=== PATIENT | male | born 1945 | race Caucasian/White ===

== ENCOUNTER → 2017-10-26 | Outpatient (CLI) | payer BC ==
[~2017-10-26] MED LIST: ABILIFY2 MG; ABILIFY2 MG PO; ABILIFY5 MG PO; ALLOPURINOL300 MG PO; AMBIEN 10MG10 MG PO; BUSPAR DIVIDOSE15 MG PO; BUSPAR10 MG PO; CALCIUM500 MG PO; CARDIZEM CD 12120 MG PO; CENTRUM SILVER1 CTB PO; CENTRUM1 TAB PO; CLOPIDOGREL; CRANBERRY1 CAP PO; ELIQUIS 5MG PO; FERROUS SULFATE65 MG PO; FISH OIL 1000MG1 CAP PO; FISH OIL O1600 MG/5 PO; FORTAMET500 MG PO; FOSINOPRIL PO; FOSINOPRIL SODI10 MG PO; GLUCOPHAGE XR500 M1 PO; GLUCOPHAGE500 MG/TAB PO; LIPITOR20 MG PO; LOPRESSOR 225 MG/TAB PO; MONOPRIL20 MG PO; NORCO 325 MG-7.1 TAB PO; PLAQUENIL 200M200 MG PO; PLAVIX 75MG TAB75 MG PO; PROTONIX 40MG T40 MG PO; PROTONIX40 MG/Pack PO; VITAMIN B-1000 MCG/T PO; VITAMIN B-12100 MCG PO; VITAMIN C500 MG PO; ZOCOR 20MG20 MG PO; ZYLOPRIM 300MG300 MG PO
== END ==
LOC: COL.RAD 11:59
DX: N26.1 Atrophy of kidney (terminal) (principal); N28.89 Other specified disorders of kidney and ureter; Z85.51 Personal history of malignant neoplasm of bladder; Z87.440 Personal history of urinary (tract) infections

== ENCOUNTER 2018-09-13 09:34 | Outpatient (RCR) | payer MEDICARE, BC ==
[~2018-09-13] VITALS: Ht 182.9 cm; Wt 73.3 kg
[2018-09-13 11:18] VITALS: BP 118/57; PULSE 74; TEMP 97.6
== END 2018-09-17 12:30 | disposition home or self-care (01) ==
LOC: EUO 09:34
DX: C34.12 Malignant neoplasm of upper lobe, left bronchus or lung (principal); D63.0 Anemia in neoplastic disease
CPT/HCPCS: J7050

== ENCOUNTER → 2018-10-15 | Outpatient (CLI) | payer MEDICARE, BC | LOC: COL.RAD 09:12 | DX: N13.30 Unspecified hydronephrosis (principal) | CPT/HCPCS: Q9967 ==

== ENCOUNTER 2020-02-04 11:54 | Inpatient (IN) | payer MEDICARE, BC ==
[~2020-02-04] VITALS: Ht 182.9 cm; Wt 72.3 kg
[~2020-02-04 11:54] MED LIST changes: +B-12 500 MCG PO; +CRANBERRY500 M3 PO; +OMNICEF 300MG300 MG PO; +PREDNISONE 5MG5 MG PO; +PROLIA60 MG/ML SQ
[2020-02-04 13:08] LABS: ALANINE AMINOTRANSFERASE 24 U/L (4-49); ALBUMIN 3.4 gm/dL (3.5-5.0); ALKALINE PHOSPHATASE 87 U/L (50-136); ANION GAP 7 mmol/L (7-16); AST,SGOT 28 U/L (15-37); BILIRUBIN,TOTAL 0.8 mg/dL (0.0-1.0); BLOOD UREA NITROGEN 21 mg/dL (9-20); C-REACTIVE PROTEIN 8.8 mg/dL (0.0-0.9); CALCIUM 8.9 mg/dL (8.4-10.2); CARBON DIOXIDE 28 mmol/L (22-30); CHLORIDE 94 mmol/L (98-107); GLUCOSE 103 mg/dL (74-106); LIPASE 148 U/L (23-300); POTASSIUM 4.4 mmol/L (3.4-5.0); SODIUM 129 mmol/L (137-145); TOTAL PROTEIN 7.3 gm/dL (6.4-8.2)
[2020-02-04 13:09] LABS: MEAN CELL VOLUME 83 fl (80.0-100.0); MEAN CORPUSCULAR HGB CONC 33 g/dl (33.0-37.0); MEAN PLATELET VOLUME 9.9 fl (7.4-10.4); PLATELET COUNT 293 K/mm3 (130-400); RED BLOOD COUNT 2.75 M/mm3 (4.20-5.60); REDCELL DISTRIBUTION WIDTH-CV 17.3 % (11.5-14.5)
[2020-02-04 13:10] LABS: HEMATOCRIT 22.7 % (42.0-52.0); HEMOGLOBIN 7.4 g/dl (13.5-18.0); MEAN CORPUSCULAR HEMOGLOBIN 27 pg (27.0-31.0)
[2020-02-04 13:12] LABS: INR 1.4 (0.8-3.0); PROTHROMBIN TIME 16.6 SECONDS (9.7-12.8)
[2020-02-04 13:46] LABS: TROPONIN-I < 0.012 ng/mL (0.000-0.035)
[2020-02-04 13:48] LABS: ANISOCYTOSIS 1+; BAND 8 % (0-10); LYMPHOCYTE 8 % (20.0-51.0); OVALOCYTES 3+; SCHISTOCYTES 1+
[2020-02-04 13:49] LABS: NEUTROPHILS 82 % (42.0-75.2); PLATELET ESTIMATE NORMAL (NORMAL)
[2020-02-04] MEDS ORDERED: ONE DAILY MULTI1 TA1 PO (13:54)
[2020-02-04] MEDS ORDERED: OMNICEF 300MG300 MG PO (14:46)
[2020-02-04 17:10] VITALS: BP 118/63; PULSE 87; TEMP 98
--- NOTE | 2020-02-04 18:27 | NUR ---
Patient arrived from ED via strecher at approximately 1700. Patient is alert and oriented, answers questions appropriately. Patient denies pain or nausea at this time. IVF initiated per order, antibiotic initiated in ED continues. Patient denies needs at this time, call light within reach.
[2020-02-04 19:48] VITALS: BP 121/73; PULSE 108; TEMP 99
--- NOTE | 2020-02-04 21:00 | NUR ---
Pt. sitting up in bed at this time. Pt. is A&OX3, assessment complete. IV to rt. forearm patent, fluids infusing per orders. Pt. denies pain or other needs, call light within reach.
[2020-02-04 23:18] VITALS: BP 90/53; PULSE 85; TEMP 99.5
[2020-02-05 06:11] VITALS: BP 100/54; PULSE 79; TEMP 99.4
[2020-02-05 06:42] LABS: MEAN CELL VOLUME 84 fl (80.0-100.0); MEAN CORPUSCULAR HGB CONC 32 g/dl (33.0-37.0); MEAN PLATELET VOLUME 9.9 fl (7.4-10.4); PLATELET COUNT 279 K/mm3 (130-400); RED BLOOD COUNT 2.56 M/mm3 (4.20-5.60); REDCELL DISTRIBUTION WIDTH-CV 17.2 % (11.5-14.5)
[2020-02-05 06:48] LABS: HEMATOCRIT 21.6 % (42.0-52.0); MEAN CORPUSCULAR HEMOGLOBIN 27 pg (27.0-31.0)
[2020-02-05 06:49] LABS: ALBUMIN 2.7 gm/dL (3.5-5.0); BILIRUBIN,TOTAL 0.6 mg/dL (0.0-1.0); CALCIUM 7.6 mg/dL (8.4-10.2); CREATININE, serum 0.95 (0.66-1.25); POTASSIUM 3.9 mmol/L (3.4-5.0)
[2020-02-05 06:50] LABS: HEMOGLOBIN 6.9 g/dl (13.5-18.0)
[2020-02-05 07:38] LABS: BAND 4 % (0-10); LYMPHOCYTE 11 % (20.0-51.0); NEUTROPHILS 85 % (42.0-75.2)
[2020-02-05 07:39] LABS: ANISOCYTOSIS 1+; OVALOCYTES 2+; PLATELET ESTIMATE NORMAL (NORMAL); POIKILOCYTOSIS 2+
[2020-02-05 07:40] LABS: MICROCYTOSIS 1+
[2020-02-05 07:42] LABS: HYPOCHROMIA 2+
--- NOTE | 2020-02-05 08:00 | NUR ---
Patient in bed resting. Alert and oriented x 3. Assessment complete. Patient states he has not had much of an appetite the past couple of days. Ileal conduit to daniels bag, drainaing clear yellow urine. Denies pain at this time. Fluids infusing per orders to right forarm IV. Denies further needs at this time.
[2020-02-05 08:10] VITALS: BP 106/47; PULSE 85; TEMP 98.7
--- NOTE | 2020-02-05 08:30 | NUR ---
Patient lying in bed. Assessment complete and meds charted. No further needs at this time.
[2020-02-05 11:16] VITALS: BP 111/63; PULSE 79; TEMP 98.9
[2020-02-05 11:24] LABS: IRON,SERUM 16 ug/dL (35-150)
[2020-02-05 11:34] LABS: TOTAL IRON BINDING CAPACITY 206 ug/dL (261-462)
--- NOTE | 2020-02-05 13:26 | NUR ---
GRIFFIN met with the patient to complete initial intake. The patient lives in [place] with his Telma. The patient denies DME usage and is independent with ADLs. The patient's PCP is Dr. Mendoza and patient receives medications from [facility] with no difficulties. The patient does not have advanced directives in the EMR but reports they are completed. The patient plans to return home at discharge. There are no additional needs at this time.
[2020-02-05 15:20] LABS: HEMATOCRIT 21.6 % (42.0-52.0); HEMOGLOBIN 6.9 g/dl (13.5-18.0)
--- NOTE | 2020-02-05 15:20 | NUR ---
Notified hospitalist of critical HGB
[2020-02-05 15:35] VITALS: BP 114/50; PULSE 89; TEMP 98.9
--- NOTE | 2020-02-05 17:43 | NUR ---
Patient has done well. Has been up to recliner most of the day. x1 assist back to bed with walker. Ileal conduit to daniels bag with clear yellow urine. Fluids infusing per orders. Patient was educated on new diet. Denies pain or further needs at this time. WIll report off to night court magistrate.
[2020-02-05 20:51] VITALS: BP 107/69; PULSE 90; TEMP 99.9
--- NOTE | 2020-02-05 21:20 | NUR ---
Pt doing well. Alert and oriented with vss. Heart and lung sounds normal. Pt has ileal conduit, CD&I, clear yellow urine. Bowel sounds aud all quad. Pedal pulses present. Pt to have CT in AM, will be NPO at midnight. Denies pain or needs. Help BP med due to hypotension. Call light within reach, will continue to monitor
[2020-02-05 23:02] VITALS: BP 109/49; PULSE 78; TEMP 98.8
[2020-02-06 03:32] VITALS: BP 113/60; PULSE 90; TEMP 98.2
[2020-02-06 03:44] LABS: COLLECTION METHOD CLEAN CATCH
[2020-02-06 04:30] LABS: PH 7 (5-8); SQUAMOUS EPITHELIAL None Seen /hpf; URINE APPEARANCE Hazy; URINE BACTERIA None Seen /hpf; URINE BILIRUBIN Negative (NEGATIVE); URINE BLOOD Negative (NEGATIVE); URINE COLOR Yellow; URINE GLUCOSE Negative (NEGATIVE); URINE KETONE Negative (NEGATIVE); URINE LEUKOCYTE ESTERASE 2+ (NEGATIVE); URINE NITRATE Negative (NEGATIVE); URINE PROTEIN(semi-quant) Negative (NEGATIVE); URINE RBC 0-2 /hpf
--- NOTE | 2020-02-06 06:34 | NUR ---
Pt had uneventful night, slept throughout night. Denies pain or needs. Will have CT this AM. Call light within reach, will continue to monitor
[2020-02-06 06:54] LABS: MEAN CELL VOLUME 85 fl (80.0-100.0); MEAN CORPUSCULAR HGB CONC 32 g/dl (33.0-37.0); MEAN PLATELET VOLUME 9.9 fl (7.4-10.4); PLATELET COUNT 246 K/mm3 (130-400); RED BLOOD COUNT 2.58 M/mm3 (4.20-5.60)
[2020-02-06 06:55] LABS: HEMATOCRIT 21.9 % (42.0-52.0); MEAN CORPUSCULAR HEMOGLOBIN 27 pg (27.0-31.0)
[2020-02-06 07:05] LABS: CALCIUM 7.7 mg/dL (8.4-10.2); CREATININE, serum 0.75 (0.66-1.25)
[2020-02-06 07:32] VITALS: BP 123/60; PULSE 88; TEMP 97.7
--- NOTE | 2020-02-06 07:52 | NUR ---
Patient awake & alert, sitting up in bed. Awating Ct scan this am. Npo. He denies pain. He denies nausea. Ivf per orders to Rfa. Adequate urine output from illeoconduit. Sj phelan.
[2020-02-06 08:09] LABS: BAND 10 % (0-10); LYMPHOCYTE 5 % (20.0-51.0); NEUTROPHILS 85 % (42.0-75.2); PLATELET ESTIMATE NORMAL (NORMAL)
[2020-02-06 08:10] LABS: ANISOCYTOSIS 2+; OVALOCYTES 2+; SCHISTOCYTES 1+
--- NOTE | 2020-02-06 09:28 | NUR ---
Patient has returned from Ct scan. awaiting results. Am medications given.
[2020-02-06 12:11] VITALS: BP 94/69; PULSE 71; TEMP 98.1
--- NOTE | 2020-02-06 12:48 | NUR ---
First visit from the coremaker. No needs right now.
[2020-02-06 16:37] VITALS: BP 108/59; PULSE 76; TEMP 97.6
--- NOTE | 2020-02-06 17:59 | NUR ---
Patient sitting up in chair. rounded this afternoon & orders obtained. Plan of care was reviewed with patient & his extensivly. Iv to Int. Patient was independet with hygiene. He is tolerating low fiber diet.
--- NOTE | 2020-02-06 20:00 | NUR ---
Report received. Assumed care for machinist 2nd shift. Assessment complete. VS stable. A&Ox3. Denies pain/shortness of breath/nausea. Tolerating diet. +flatus. INT to right wrist flushes without difficulty. Ileal conduit with yellow urine with some sediment. Plan of care discussed for this shift-denies questions/concerns. Call light in reach. Will monitor.
[2020-02-06 20:29] VITALS: BP 112/61; PULSE 78; TEMP 97.4
[2020-02-07 00:41] VITALS: BP 115/59; PULSE 80; TEMP 98
[2020-02-07 04:24] VITALS: BP 112/53; PULSE 72; TEMP 97.5
[2020-02-07 06:53] LABS: CALCIUM 7.8 mg/dL (8.4-10.2); CREATININE, serum 0.67 (0.66-1.25); POTASSIUM 3.8 mmol/L (3.4-5.0)
[2020-02-07 07:13] LABS: MEAN CELL VOLUME 85 fl (80.0-100.0); MEAN CORPUSCULAR HGB CONC 32 g/dl (33.0-37.0); PLATELET COUNT 312 K/mm3 (130-400); RED BLOOD COUNT 2.94 M/mm3 (4.20-5.60); REDCELL DISTRIBUTION WIDTH-CV 17.3 % (11.5-14.5)
[2020-02-07 07:26] LABS: HEMATOCRIT 25.1 % (42.0-52.0); MEAN CORPUSCULAR HEMOGLOBIN 27 pg (27.0-31.0)
[2020-02-07 07:58] VITALS: BP 126/55; PULSE 89; TEMP 97.5
--- NOTE | 2020-02-07 08:00 | NUR ---
Patient in bed resting. Alert and oriented x 3. Assessment complete. Denies pain at this time. Denies further needs at this time.
[2020-02-07] MEDS ORDERED: FLAGYL500 MG PO (08:51)
[2020-02-07] MEDS ORDERED: CIPRO 500MG TA500 MG PO ×2 (08:53)
[2020-02-07 09:29] LABS: LYMPHOCYTE 4 % (20.0-51.0); NEUTROPHILS 93 % (42.0-75.2); PLATELET ESTIMATE NORMAL (NORMAL)
[2020-02-07 09:30] LABS: OVALOCYTES 2+
[2020-02-07 09:31] LABS: BURR CELLS 1+
[2020-02-07] MEDS ORDERED: OMNICEF 300MG300 MG PO (09:33)
[2020-02-07 09:34] LABS: SCHISTOCYTES 1+
--- NOTE | 2020-02-07 11:20 | NUR ---
Discharge education provided to patient. Educated on follow up appointments and all new medications. Educated on low fiber diet. All questions answered. INT to right forarm discontinued, catheter tip intact. No further needs at this time. Patient out by wheelchair with surgical staff.
== END 2020-02-07 11:20 | disposition home or self-care (01) | DRG 392 ==
LOC: COL.ER 11:54 → SURG 15:12
PROVIDERS: Emergency Medicine; Physician Assistant; ADMIT Student in an Organized Health Care Education/Training Program
DX: K57.20 Diverticulitis of large intestine with perforation and abscess without bleeding (principal); D59.1 Other autoimmune hemolytic anemias; E87.1 Hypo-osmolality and hyponatremia; J44.9 Chronic obstructive pulmonary disease, unspecified; E78.5 Hyperlipidemia, unspecified; M06.9 Rheumatoid arthritis, unspecified; R63.0 Anorexia; R19.00 Intra-abdominal and pelvic swelling, mass and lump, unspecified site; N28.9 Disorder of kidney and ureter, unspecified; K05.219 Aggressive periodontitis, localized, unspecified severity; I48.91 Unspecified atrial fibrillation; Z03.818 Encounter for observation for suspected exposure to other biological agents ruled out; Z79.01 Long term (current) use of anticoagulants; Z85.118 Personal history of other malignant neoplasm of bronchus and lung; Z85.51 Personal history of malignant neoplasm of bladder; Z87.891 Personal history of nicotine dependence; Z68.21 Body mass index [BMI] 21.0-21.9, adult
CPT/HCPCS: 99223-AI; 99233-AI; 99239; A4216; J0696; J2405; J7030; J7512; Q9967

== ENCOUNTER 2020-02-25 14:30 | Inpatient (IN) | payer MEDICARE, BC ==
[~2020-02-25] VITALS: Ht 182.9 cm; Wt 67.4 kg
[2020-02-25] VITALS (121 sets, daily range): BP systolic 110–132; BP diastolic 55–67; PULSE 105–122; TEMP 98.3–100.4; O2SAT 93–100
[~2020-02-25 14:30] MED LIST changes: +CIPRO 500MG TA500 MG PO; +FLAGYL500 MG PO; +ONE DAILY MULTI1 TA1 PO
--- NOTE | 2020-02-25 16:49 | NUR ---
PT ARRIVED TO FLOOR VIA WHEELCHAIR, INDEPENDENT IN ROOM, STEADY ON FEET, DENYING PAIN OR DISCOMFORT, ORIENTED TO ROOM, PERFORMED COVID AND INFECTIOUS DISEASE SCREEN, ASSESSMENT, SUICIDE ASSESSMENT AND ADMISSION B. BROUGHT IN ICE CHIPS NO OTHER NEEDS AT THIS TIME.
[2020-02-25 17:28] LABS: MEAN CELL VOLUME 86 fl (80.0-100.0); MEAN CORPUSCULAR HGB CONC 32 g/dl (33.0-37.0); MEAN PLATELET VOLUME 9.7 fl (7.4-10.4); PLATELET COUNT 347 K/mm3 (130-400); RED BLOOD COUNT 2.91 M/mm3 (4.20-5.60); REDCELL DISTRIBUTION WIDTH-CV 19.9 % (11.5-14.5)
[2020-02-25] MEDS ORDERED: VITAMIN B12 781 TAB PO (17:29)
[2020-02-25 17:31] LABS: MEAN CORPUSCULAR HEMOGLOBIN 27 pg (27.0-31.0)
[2020-02-25 17:38] LABS: CALCIUM 8.6 mg/dL (8.4-10.2); CREATININE, serum 0.91 (0.66-1.25); POTASSIUM 4.2 mmol/L (3.4-5.0)
[2020-02-25] MEDS ORDERED: PROBIOTIC ACID1 EAC3 PO (17:38)
[2020-02-25] MEDS ORDERED: VITAMINC1000TA PO (17:39)
[2020-02-25 17:44] LABS: ANISOCYTOSIS 3+; BASOPHIL 1 % (0-2); LYMPHOCYTE 5 % (20.0-51.0); MYELOCYTE 1 % (0-0); NEUTROPHILS 88 % (42.0-75.2); POIKILOCYTOSIS 3+
[2020-02-25 17:45] LABS: HELMET CELLS 1+; OVALOCYTES 3+
[2020-02-25 17:46] LABS: PLATELET ESTIMATE NORMAL (NORMAL)
[2020-02-25] MEDS ORDERED: MASON NATURAL2000 IU PO (17:48)
[2020-02-25] MEDS ORDERED: NATURAL IRON65 MG PO (17:50)
[2020-02-25] MEDS ORDERED: COLACE 100100 MG/CAP PO (17:53)
--- NOTE | 2020-02-25 20:28 | NUR ---
OR staff to come get patient at 2015. Consent signed and on chart. Belongings taken to ICU bed 5 by this nurse. Patient left on telemetry. Will report off to ICU nurse when they return my call.
--- NOTE | 2020-02-25 21:00 | NUR ---
Recieved report from Mirza Kaba RN. patient is currenlty in the PACU.
--- NOTE | 2020-02-25 21:15 | NUR ---
Recieved report and status update from Lars, PACU nurse. patient is stable and awake and alert. there were no complications with CT placement. it is covered with zeroform, gauze and tegaderm, hooked up to continuous suction.
--- NOTE | 2020-02-25 21:22 | NUR ---
Patient arrived from PACU. patient is stable, on RA satting at 98%, no pain reported.
--- NOTE | 2020-02-25 21:35 | NUR ---
called , Lars the PACU nurse answered, I told him there are some bubbles in the chamber at the level 1. said that there was a small leak and that that is okay and to call if the bubbles go past 3.
--- NOTE | 2020-02-25 21:47 | NUR ---
Called pateints , Telma, to let her know the patient arrived to the ICU and is stable doing great. Told her that the CT placement went well with no complications and she asked if he was recieving any blood. I told her at this time he is not but we are redrawing an H/H at midnight and I would call her with those reults upon her request, she said yes please do.
--- NOTE | 2020-02-25 21:54 | NUR ---
called ROCÍO Alejandra because pateint was requesting colace. I let her know that none of the pateints home medications were ordered.
[2020-02-26] VITALS (623 sets, daily range): BP systolic 111–124; BP diastolic 55–84; PULSE 94–115; TEMP 98.1–99.8; O2SAT 71–100
[2020-02-26 00:33] LABS: HEMATOCRIT 20.6 % (42.0-52.0); HEMOGLOBIN 6.9 g/dl (13.5-18.0)
--- NOTE | 2020-02-26 00:50 | NUR ---
Informed patient that his hgb dropped to 6.9 and asked if he wanted us to transfuse him. In the past he has refused blood transfusions with hgb levels below 7. The patient did refuse again this time. He said he feels great and he does not want a blood transfusion at this time.
--- NOTE | 2020-02-26 00:59 | NUR ---
Contacted the pateints , Telma, to update her on the patients new hgb level. she said she would like to know what the mornings level is.
--- NOTE | 2020-02-26 01:05 | NUR ---
Contacted Ny to let her know of critical hgb level and its drop to 6.9. She said to ask patient if he wanted a transfusion because he has refused in the past and I told her that he did refuse and that I also updated the . She said to make sure patient does not become symptomatic and we will recheck hgb at 0500.
[2020-02-26 01:21] LABS: MUCOUS Present /lpf; PH 7 (5-8); SQUAMOUS EPITHELIAL None Seen /hpf; URINE APPEARANCE Clear; URINE BACTERIA None Seen /hpf; URINE BILIRUBIN Negative (NEGATIVE); URINE BLOOD Negative (NEGATIVE); URINE COLOR Yellow; URINE GLUCOSE Negative (NEGATIVE); URINE KETONE Negative (NEGATIVE); URINE LEUKOCYTE ESTERASE Trace (NEGATIVE); URINE NITRATE Negative (NEGATIVE); URINE PROTEIN(semi-quant) Negative (NEGATIVE); URINE RBC 0-2 /hpf
[2020-02-26 01:25] LABS: COLLECTION METHOD CLEAN CATCH
[2020-02-26 06:07] LABS: MEAN CELL VOLUME 86 fl (80.0-100.0); MEAN CORPUSCULAR HGB CONC 33 g/dl (33.0-37.0); MEAN PLATELET VOLUME 10.4 fl (7.4-10.4); PLATELET COUNT 315 K/mm3 (130-400); RED BLOOD COUNT 2.64 M/mm3 (4.20-5.60); REDCELL DISTRIBUTION WIDTH-CV 19.9 % (11.5-14.5)
[2020-02-26 06:12] LABS: HEMATOCRIT 22.6 % (42.0-52.0); HEMOGLOBIN 7.4 g/dl (13.5-18.0); MEAN CORPUSCULAR HEMOGLOBIN 28 pg (27.0-31.0)
[2020-02-26 06:24] LABS: ALBUMIN 3.2 gm/dL (3.5-5.0); BILIRUBIN,TOTAL 0.9 mg/dL (0.0-1.0); CALCIUM 8.5 mg/dL (8.4-10.2); CREATININE, serum 0.93 (0.66-1.25); POTASSIUM 4.2 mmol/L (3.4-5.0)
[2020-02-26 06:56] LABS: BAND 1 % (0-10); LYMPHOCYTE 9 % (20.0-51.0); NEUTROPHILS 86 % (42.0-75.2); PLATELET ESTIMATE NORMAL (NORMAL)
[2020-02-26 08:24] LABS: PATHOLOGY DIFF REVIEW OK
--- NOTE | 2020-02-26 10:32 | NUR ---
SW met with the patient to discuss discharge plan and to complete the re-admit interview. The patient recently discharged from the hospital, 02/06, and returned back home with his . The patient was admitted directly from his PCP's office, due to persisitent sigmoid diverticulitis and possible intra abdominal abscess. The patient reports that he took his medications as prescribed. The patient lives in [place] with his , Telma (ph#[phone]). He reports independence with ADLs and does not have any DME. The patient's PCP is Dr. Juanjose Mendoza and he receives his medications at [facility]. He reports no difficulties obtaining his meds. The patient does not have advanced directives in EMR, but he reports that the does have them completed and at home. He states that his is his DPOA-HC. The patient plans to return back home with his upon discharge. The patient is to transfer to the medical floor today. SW to continue to follow as needed.
--- NOTE | 2020-02-26 14:45 | NUR ---
Patient up to room [address] Wylie in to see patient.
--- NOTE | 2020-02-26 18:44 | NUR ---
Patient has done well throughout the afternoon. Patient ambulates with stand by assist. Ileostomy to daniels with clear yellow urine in bag. Chest tube to suction at 20mmhg, with scant amount of bloody drainage present. Denies pain. IV to right forarm, antibiotics infusing per orders. Denies further needs at this time.
[2020-02-27] VITALS (7 sets, daily range): BP systolic 111–120; BP diastolic 53–69; PULSE 91–123; TEMP 98.3–99.9
--- NOTE | 2020-02-27 04:30 | NUR ---
IN TO CHECK ON PATIENT. TELEY PATCHES WERE REPLACED. ILIOSTOMY WAS DRAINED AND CHEST TUBE WAS CHECKED. PATIENT DENIES ANY OTHER NEEDS AT THIS TIME
--- NOTE | 2020-02-27 05:05 | NUR ---
PATIENT HAS BEEN RESTING THROUGHOUT THE NIGHT WITH NO COMPLAINTS. PATIENT HAS HAD GREAT OUTPUT OUT OF THE ILIOSTOMY. CHEST TUBE HAS 11ML OF RED DRAINAGE OUT TOTAL. PATIENT TELEY PATCHES WERE REPLACED. NO BOWEL MOVEMENT ON MY SHIFT REPORTED FOR THE PATIENT. PATIENT DENIES ANY OTHER NEEDS AT THIS TIME. WILL REPORT OFF TO DAY SHIFT UPON THEIR ARRIVAL.
[2020-02-27 06:33] LABS: MEAN CELL VOLUME 84 fl (80.0-100.0); MEAN CORPUSCULAR HGB CONC 33 g/dl (33.0-37.0); MEAN PLATELET VOLUME 10.2 fl (7.4-10.4); PLATELET COUNT 283 K/mm3 (130-400); RED BLOOD COUNT 2.72 M/mm3 (4.20-5.60)
[2020-02-27 06:43] LABS: HEMATOCRIT 22.8 % (42.0-52.0); HEMOGLOBIN 7.5 g/dl (13.5-18.0); MEAN CORPUSCULAR HEMOGLOBIN 28 pg (27.0-31.0)
[2020-02-27 06:52] LABS: CALCIUM 8.1 mg/dL (8.4-10.2); CREATININE, serum 0.8 (0.66-1.25); MAGNESIUM 2.1 mg/dL (1.6-2.3); POTASSIUM 4.1 mmol/L (3.4-5.0)
[2020-02-27 07:43] LABS: C-REACTIVE PROTEIN 15.9 mg/dL (0.0-0.9)
[2020-02-27 07:58] LABS: BAND 6 % (0-10); LYMPHOCYTE 7 % (20.0-51.0); METAMYELOCYTE 1 % (0-0); SCHISTOCYTES 2+
[2020-02-27 07:59] LABS: ANISOCYTOSIS 2+; OVALOCYTES 3+; PLATELET ESTIMATE NORMAL (NORMAL)
--- NOTE | 2020-02-27 08:00 | NUR ---
Patient in bed resting. Alert and oriented x 3. Assessment complete. Chest tube to suction with minimal drainage present. Urostomy to daniels with clear yellow urine in bag. Denies pain at this time. Denies further needs at this time.
[2020-02-27 08:01] LABS: NEUTROPHILS 82 % (42.0-75.2)
--- NOTE | 2020-02-27 10:39 | NUR ---
Dr. Wylie in to see patient
--- NOTE | 2020-02-27 10:40 | NUR ---
IV to INT
--- NOTE | 2020-02-27 19:55 | NUR ---
Patient has done well throughout the day. Minimal needs. Stand by assist to restroom. Has been up to recliner throughout the day. Denies pain at this. Denies further needs at this time. Reported off to night clerk auditor.
[2020-02-28 03:27] VITALS: BP 107/65; PULSE 88; TEMP 97.9
--- NOTE | 2020-02-28 05:04 | NUR ---
patient had an uneventful night. he was able to sleep through the night and did not request anything. will report off to day shift upon their arrival
[2020-02-28 07:33] VITALS: BP 114/62; PULSE 88; TEMP 97.9
[2020-02-28 07:51] LABS: MEAN CELL VOLUME 85 fl (80.0-100.0); MEAN CORPUSCULAR HGB CONC 32 g/dl (33.0-37.0); MEAN PLATELET VOLUME 10.1 fl (7.4-10.4); PLATELET COUNT 270 K/mm3 (130-400); RED BLOOD COUNT 2.64 M/mm3 (4.20-5.60); REDCELL DISTRIBUTION WIDTH-CV 19.9 % (11.5-14.5)
[2020-02-28 07:53] LABS: HEMATOCRIT 22.4 % (42.0-52.0); HEMOGLOBIN 7.2 g/dl (13.5-18.0); MEAN CORPUSCULAR HEMOGLOBIN 27 pg (27.0-31.0)
[2020-02-28 08:11] LABS: CALCIUM 7.9 mg/dL (8.4-10.2); CREATININE, serum 0.79 (0.66-1.25)
--- NOTE | 2020-02-28 09:12 | NUR ---
Sitting up in chair. Denies pain or shortness of breath. Chest tube site to left upper chest with tegaderm dressing intact. Gauze under tegaderm dressing with some drainage noted on it. Chest tube is connected to suction at 20mmHg. Very minimal red drainage noted in chest tube collection chamber. Urostomy connected to daniels bag draining clear yellow urine. Patient denies further needs at this time
[2020-02-28 10:20] LABS: ANISOCYTOSIS 3+; BAND 2 % (0-10); LYMPHOCYTE 11 % (20.0-51.0); NEUTROPHILS 85 % (42.0-75.2); OVALOCYTES 2+; PLATELET ESTIMATE NORMAL (NORMAL)
--- NOTE | 2020-02-28 11:15 | NUR ---
Remains sitting up in chair watching TV. Denies pain or shortness of air. Chest tube remains connected to suction at 20mmHg. Patient denies further needs at this time.
[2020-02-28 11:18] VITALS: BP 108/51; PULSE 90; TEMP 98.8
--- NOTE | 2020-02-28 16:01 | NUR ---
Lying in bed with eyes open talking on cell phone. Patient denies pain or needs. Chest tube connected to suction at 20mmHg. Patient denies needs at this time.
[2020-02-28 16:29] VITALS: BP 1118/63; PULSE 108; TEMP 99.8
--- NOTE | 2020-02-28 18:05 | NUR ---
Sitting up in bed eating dinner. Discussed with the patient how other meal options can be ordered if he does not want what is on the menu. Patient will look over menu options. Denies needs at this time.
--- NOTE | 2020-02-28 20:15 | NUR ---
Pt. sitting up in bed at this time. Pt. is A&OX3, assessment complete. INT to rt. forearm patent. Pt. denies pain at this time. Chest tube to lt. chest unchanged. Pt. denies further needs, call light within reach.
[2020-02-28 20:21] VITALS: BP 116/61; PULSE 111; TEMP 100.2
[2020-02-29] VITALS (8 sets, daily range): BP systolic 108–125; BP diastolic 55–64; PULSE 85–130; TEMP 97.9–98.8
[2020-02-29 06:41] LABS: RED BLOOD COUNT 2.63 M/mm3 (4.20-5.60)
[2020-02-29 06:42] LABS: MEAN CELL VOLUME 84 fl (80.0-100.0); MEAN CORPUSCULAR HGB CONC 32 g/dl (33.0-37.0); MEAN PLATELET VOLUME 10.3 fl (7.4-10.4); PLATELET COUNT 291 K/mm3 (130-400); REDCELL DISTRIBUTION WIDTH-CV 19.5 % (11.5-14.5)
[2020-02-29 06:45] LABS: HEMOGLOBIN 7.1 g/dl (13.5-18.0); MEAN CORPUSCULAR HEMOGLOBIN 27 pg (27.0-31.0)
[2020-02-29 06:50] LABS: CALCIUM 8.2 mg/dL (8.4-10.2); CREATININE, serum 0.73 (0.66-1.25); POTASSIUM 3.9 mmol/L (3.4-5.0)
--- NOTE | 2020-02-29 08:29 | NUR ---
Sitting up in bed with eyes open. Denies pain or shortness of air. Chest tube to left upper chest with tegaderm intact. Dressing under tegaderm with some discharge noted on it. Chest tube to suction at 20mmHg. Very minimal red discharge in chest tube drainage container. Urostomy patent draining clear yello urine. Patient denies pain or concerns at this time.
[2020-02-29 09:38] LABS: BAND 1 % (0-10); LYMPHOCYTE 5 % (20.0-51.0); NEUTROPHILS 89 % (42.0-75.2)
[2020-02-29 09:40] LABS: ANISOCYTOSIS 2+; OVALOCYTES 2+; PLATELET ESTIMATE NORMAL (NORMAL)
--- NOTE | 2020-02-29 16:23 | NUR ---
Chest tube disconnected from suction per order. Assisted patient up to chair. Gait steady. Denies pain or shortness of air. Patient denies further needs at this time.
--- NOTE | 2020-02-29 17:25 | NUR ---
Receive call from tele that patient heart rate elevated. Checked on patient. He is sitting up in chair at this time eating dinner. Patient denies feeling like his heart is beating fast, any increased shortness of breath, or any other symptoms. Patient says that he feels okay. Contacted JOSETTE Perdomo, and provided update. Order received for EKG. Contacted respiratory and they will come do EKG.
--- NOTE | 2020-02-29 18:32 | NUR ---
Remains sitting up in chair. Denies pain or any shortness of breath. Urostomy draining into daniels bag, clear yellow urine noted in bag. Left upper chest tube connected via gravity. Patient denies any needs or concerns at this time.
--- NOTE | 2020-02-29 21:30 | NUR ---
Was up in the chair for a couple hours- now back to bed, denies pain/SOB, has been tachycardic for the past few hours- was given Cardizem on day shift- I gave his night dose of Lopressor about 1/2 hour ago- pulse now down to 104,,was 120,s. Did get a pudding for snack tonight. Urostomy to DD bad draining clear yellow urine.
[2020-03-01 01:01] VITALS: BP 103/59; PULSE 83; TEMP 98
[2020-03-01 04:35] VITALS: BP 104/62; PULSE 82; TEMP 98
[2020-03-01 06:26] LABS: MEAN CELL VOLUME 85 fl (80.0-100.0); MEAN CORPUSCULAR HGB CONC 33 g/dl (33.0-37.0); MEAN PLATELET VOLUME 10.7 fl (7.4-10.4); PLATELET COUNT 313 K/mm3 (130-400); RED BLOOD COUNT 2.73 M/mm3 (4.20-5.60); REDCELL DISTRIBUTION WIDTH-CV 19.3 % (11.5-14.5)
[2020-03-01 06:30] LABS: HEMATOCRIT 23.2 % (42.0-52.0); HEMOGLOBIN 7.6 g/dl (13.5-18.0); MEAN CORPUSCULAR HEMOGLOBIN 28 pg (27.0-31.0)
[2020-03-01 06:40] LABS: C-REACTIVE PROTEIN 6.5 mg/dL (0.0-0.9); CALCIUM 8.6 mg/dL (8.4-10.2); CREATININE, serum 0.84 (0.66-1.25); POTASSIUM 3.8 mmol/L (3.4-5.0)
--- NOTE | 2020-03-01 07:00 | NUR ---
Quiet night- pulse down in the 70,s during the night- denies pain- slept well npo
[2020-03-01 07:46] LABS: ANISOCYTOSIS 2+; BAND 5 % (0-10); EOSINOPHIL 1 % (0-4); HYPOCHROMIA 2+; LYMPHOCYTE 6 % (20.0-51.0); NEUTROPHILS 85 % (42.0-75.2); OVALOCYTES 1+; PLATELET ESTIMATE NORMAL (NORMAL)
[2020-03-01 07:47] LABS: TEAR DROP CELLS 1+
--- NOTE | 2020-03-01 08:00 | NUR ---
Patient in bed resting. Alert and oriented x 3. Assessment complete. Chest tube to waterseal with small amount of bloody drainage. Dressing to chest tube with small amount of drainage. INT to right forarm without complications. Urostomy noted. Denies pain or further needs at this time.
[2020-03-01 08:17] VITALS: BP 129/57; PULSE 91; TEMP 97.6
--- NOTE | 2020-03-01 08:58 | NUR ---
Patient down for CT
--- NOTE | 2020-03-01 10:15 | NUR ---
Patient ambulating in [place] with physical therapy.
[2020-03-01 12:40] VITALS: BP 107/51; PULSE 88; TEMP 97.6
--- NOTE | 2020-03-01 14:33 | NUR ---
The patient is to have a drain placed on 03/02. Per nurse, the patient is ambulating well and PT is recommending home with family assist. Will continue to monitor.
[2020-03-01 16:52] VITALS: BP 112/60; PULSE 94; TEMP 97.7
--- NOTE | 2020-03-01 19:32 | NUR ---
Patient has done well throughout the day. Minimal needs. Independent in the room, steady gait. Patient changed urostomy pouch today, states he changes out pouch once a week. Denies pain at this time. Denies further needs at this time. Reported off to hospice fellow.
[2020-03-01 20:00] VITALS: BP 120/47; PULSE 102; TEMP 98.9
--- NOTE | 2020-03-01 20:30 | NUR ---
Initial shift assessment done- denies pain, no SOB, Tele on- rate 100/min, Left chest tube to water seal- dressing occlusive, urostomy bag with clear yellow urine- will be NPO after MN for drainage of abd abcess tomorrow per IR
[2020-03-02] VITALS (18 sets, daily range): BP systolic 95–132; BP diastolic 47–69; PULSE 84–101; TEMP 97.3–99
--- NOTE | 2020-03-02 05:37 | NUR ---
Did get a good 3-4 hour stretch of sleep during the night--was awakened because urostomy bag was leaking-pt chandged the appliance and called his to bring in his supplies- has been NPO since MN
[2020-03-02 06:37] LABS: MEAN CELL VOLUME 86 fl (80.0-100.0); MEAN CORPUSCULAR HGB CONC 32 g/dl (33.0-37.0); MEAN PLATELET VOLUME 10.2 fl (7.4-10.4); PLATELET COUNT 295 K/mm3 (130-400); RED BLOOD COUNT 2.87 M/mm3 (4.20-5.60); REDCELL DISTRIBUTION WIDTH-CV 19.8 % (11.5-14.5)
[2020-03-02 06:41] LABS: HEMATOCRIT 24.7 % (42.0-52.0); HEMOGLOBIN 7.8 g/dl (13.5-18.0); MEAN CORPUSCULAR HEMOGLOBIN 27 pg (27.0-31.0)
[2020-03-02 06:46] LABS: ALBUMIN 3.4 gm/dL (3.5-5.0); CALCIUM 8.8 mg/dL (8.4-10.2); CREATININE, serum 0.81 (0.66-1.25); PHOSPHOROUS 4.4 mg/dL (2.5-4.5); POTASSIUM 4.2 mmol/L (3.4-5.0)
[2020-03-02 06:47] LABS: INR 1.3 (0.8-3.0); PROTHROMBIN TIME 15.2 SECONDS (9.7-12.8)
[2020-03-02 07:24] LABS: BAND 6 % (0-10); LYMPHOCYTE 7 % (20.0-51.0); NEUTROPHILS 87 % (42.0-75.2); PLATELET ESTIMATE NORMAL (NORMAL)
[2020-03-02 07:25] LABS: OVALOCYTES 1+; POIKILOCYTOSIS 1+; SCHISTOCYTES 1+; TEAR DROP CELLS 1+
--- NOTE | 2020-03-02 07:31 | NUR ---
SPOKE TO BARRY REGARDING QUESTIONS AND CONSENT.
--- NOTE | 2020-03-02 08:12 | NUR ---
Pt awake and alert upon entry, talkative. Chest tube to dependent drainage marked level this AM, insertion site CDI. Surgical consent signed for drain placement, Shift assessments complete, left Pt call light in reach, bed in lowest position.
[2020-03-02 08:46] LABS: PATHOLOGY DIFF REVIEW OK +
--- NOTE | 2020-03-02 09:45 | NUR ---
PT BROUGHT INTO CT VIA BED BY CT STAFF. ILLEOSTOMY BAG AND CHEST TUBE TO WATER SEAL IN PLACE. PT TRANSFERS SELF TO BED. MONITORING EQUIPMENT PLACED, IMAGES TAKEN AND SENT
--- NOTE | 2020-03-02 10:45 | NUR ---
REPROT CALLED TO [facility]. NO MEDS GIVEN BY THIS NURSE. VSS. DRAIN BAG PLACED BY DR IRBY AND THIS WAS SECURED TO PT'S LEG. PT TRANSFERS BACK TO BED WITH MINIMAL ASSIST. 10 CC PURLUENT DRAINAGE TAKEN TO LAB.
--- NOTE | 2020-03-02 11:15 | NUR ---
SW attended clinical rounds with the time. The patient's was on speaker phone. All questions and concerns were answered. Will continue to follow.
--- NOTE | 2020-03-02 20:06 | NUR ---
Pt resting in the room, no C/O pain today, drain from abdomilal abcess has no fluid accumulation this evening. VS have remained stable.
[2020-03-03] VITALS (9 sets, daily range): BP systolic 96–129; BP diastolic 59–65; PULSE 85–128; TEMP 97.7–99
--- NOTE | 2020-03-03 05:23 | NUR ---
PATIENT HAS HAD A PEACEFUL NIGHT. CXR CAME BACK STABLE WITH A REPEAT THIS AM JUST TO ACCOMIDATE THE PREVIOUS ONE. PATIENT HAS NOT HAD ANY NEW SHORTNESS OF BREATH OR CHEST PAIN. PATIENT TOOK HIS EVENING MEDICATIONS WITHOUT DIFFICULTY. STILL HAS THE ABCESS DRAIN IN PLACE WITH LITTLE TO NO DRAINAGE. NO ISSUES NOTED WITH THE UROSTOMY. WILL REPORT OFF TO DAY SHIFT UPON ON THEIR ARRIVAL
[2020-03-03 06:14] LABS: MEAN CELL VOLUME 84 fl (80.0-100.0); MEAN CORPUSCULAR HGB CONC 33 g/dl (33.0-37.0); PLATELET COUNT 296 K/mm3 (130-400); RED BLOOD COUNT 2.63 M/mm3 (4.20-5.60); REDCELL DISTRIBUTION WIDTH-CV 19.1 % (11.5-14.5)
[2020-03-03 06:17] LABS: HEMATOCRIT 22.1 % (42.0-52.0); HEMOGLOBIN 7.2 g/dl (13.5-18.0); MEAN CORPUSCULAR HEMOGLOBIN 27 pg (27.0-31.0)
[2020-03-03 06:25] LABS: CALCIUM 8.3 mg/dL (8.4-10.2); CREATININE, serum 0.81 (0.66-1.25)
--- NOTE | 2020-03-03 08:00 | NUR ---
A&O. VSS. PATIENT'S B/P MEDS WERE HELD DUE TO LOW B/P WHICH ARE NOW STABLE IN THE LOW 100'S. ELIQUIS ALSO ON HOLD PER . PATIENT'S CHEST TUBE WAS ACCIDENTLY PULLED OUT YESTERDAY. PATIENT STABLE. CXR OBTAINED THIS AM. PATIENT DENIES SOA OR CHEST PAIN. RIGHT LUNG MILES DEMINISHED. ABCESS DRAIN TO DD WITH SMALL AMOUNTS OF DRAINAGE NOTED. CHRONIC UROSTOMY TO DD WITH CLEAR YELLOW URINE. LEFT FORARM IV TO INT. NO C/O N/V. LOW FIBER DIET. HEAD TO TOE ASSESSMENT COMPLETE. AM MEDS GIVEN. NO OTHER NEEDS. CALL LIGHT IN REACH.
[2020-03-03 09:28] LABS: BAND 21 % (0-10); LYMPHOCYTE 7 % (20.0-51.0); NEUTROPHILS 69 % (42.0-75.2); PLATELET ESTIMATE NORMAL (NORMAL)
[2020-03-03 09:30] LABS: ANISOCYTOSIS 1+; POIKILOCYTOSIS 2+
[2020-03-03 09:31] LABS: TEAR DROP CELLS 1+
[2020-03-03 09:32] LABS: OVALOCYTES 1+; SCHISTOCYTES 1+
--- NOTE | 2020-03-03 11:25 | NUR ---
PATIENT AMBULATING IN HALLWAY WITH PT. TOLERATING ACTIVITY WELL. SEE PT NOTES.
--- NOTE | 2020-03-03 17:00 | NUR ---
PRODUCTION SOLDERER CALLED AND SAID PATIENT APPEARED TO BE IN A-FIB. PATIENT HAS A HX OF A-FIB. UPON ENTERING ROOM PATIENT WAS UP MOVING AROUND. DENIES CHEST PAIN AND STATES HE ONLY SL FEELS SOA WITH ACTIVITY. PATIENT HAS A RIGHT PNEUMO WE ARE CURRENTLY MONITORING. PATIENT IS TACHY IN THE 120'S. PATIENT'S CARDIZEM HAS BEEN GIVEN BUT B/P MEDS WERE STILL BEING HELD DUE TO PREVIOUS LOW B/P AND C/O DIZZINESS. HOSPITALIST AND SURGEON NOTIFIED. EKG JUST SHOWED TACHYCARDIA. AT REST, PATIENT'S HR QUICKLY WENT BACK DOWN. HR NOW 110-113 IN BED. PATIENT RESTING WITHOUT COMPLAINTS. WILL MONITOR.
--- NOTE | 2020-03-03 17:10 | NUR ---
RT AT BEDSIDE TO GET EKG
--- NOTE | 2020-03-03 17:40 | NUR ---
PATIENT RESTING COMFORTABLY. VSS. HR UPPER 90'S TO LOW 100'S. NO COMPLAINTS.
--- NOTE | 2020-03-03 17:40 | NUR ---
PATIENT DOING WELL, SITTING UP IN BED EATING SUPPER. NO C/O SOA OR CHEST PAIN. HR OF 113, O2 SAT AT 98% ON RA
--- NOTE | 2020-03-03 17:44 | NUR ---
LAB AT BEDSIDE
[2020-03-04 00:19] VITALS: BP 115/63; PULSE 92; TEMP 99.1
--- NOTE | 2020-03-04 01:26 | NUR ---
PATIENT DOING WELL TONIGHT. ALERT AND ORIENTED. DENIES PAIN, DENIES CHEST PAIN OR SOA, BUT RESPIRATIONS APPEAR SHALLOW. R CHEST TUBE SITE CDI WITH GAUZE AND TEGADERM. ABCESS DRAIN HAD 25 ML OF BLOODY/TRAYLOR DRAINAGE. UROSTOMY TO DEPENEDENT DRAINAGE WITH YELLOW URINE OUTPUT. CALLED AND STATES THAT PATIENT SEEMS TO BE DEPRESSED AND HAD CALLED HER CRYING. DISCUSSED WITH THAT I WOULD BE SURE TO CHECK IN ON HIM EXTRA. NO FURTHER NEEDS AT THIS TIME. WILL CONTINUE TO MONITOR.
[2020-03-04 04:13] VITALS: BP 112/67; PULSE 88; TEMP 97.8
[2020-03-04 06:06] LABS: MEAN CELL VOLUME 85 fl (80.0-100.0); MEAN CORPUSCULAR HGB CONC 33 g/dl (33.0-37.0); MEAN PLATELET VOLUME 10.5 fl (7.4-10.4); PLATELET COUNT 326 K/mm3 (130-400); RED BLOOD COUNT 2.75 M/mm3 (4.20-5.60); REDCELL DISTRIBUTION WIDTH-CV 19.4 % (11.5-14.5)
[2020-03-04 06:08] LABS: HEMATOCRIT 23.3 % (42.0-52.0); HEMOGLOBIN 7.6 g/dl (13.5-18.0); MEAN CORPUSCULAR HEMOGLOBIN 28 pg (27.0-31.0)
[2020-03-04 06:22] LABS: CALCIUM 8.5 mg/dL (8.4-10.2); CREATININE, serum 0.82 (0.66-1.25); POTASSIUM 3.8 mmol/L (3.4-5.0)
[2020-03-04 07:00] LABS: ANISOCYTOSIS 2+; BAND 15 % (0-10); LYMPHOCYTE 9 % (20.0-51.0); NEUTROPHILS 75 % (42.0-75.2); OVALOCYTES 3+; PLATELET ESTIMATE NORMAL (NORMAL)
[2020-03-04 07:21] VITALS: BP 111/59; PULSE 92; TEMP 97.6
[2020-03-04 11:39] VITALS: BP 110/61; PULSE 87; TEMP 97.6
--- NOTE | 2020-03-04 15:00 | NUR ---
Patient is alert and oriented. denies any pain. clear lung sound, heart sound is normal. dressing on left side of his chest. dependent drainage from colon abcess. Chronic daniels related to Urostomy. Hgb is 7.6, Patient have chronic anemia. Patient tolerated diet. Call light at bedside.
[2020-03-04 16:46] VITALS: BP 113/63; PULSE 93; TEMP 98.1
--- NOTE | 2020-03-04 17:54 | NUR ---
20ml of colon abscess drainage was discarded on this shift. drainage is thick.
[2020-03-04 20:31] VITALS: BP 126/71; PULSE 102; TEMP 99.1
[2020-03-05 00:34] VITALS: BP 107/62; PULSE 87; TEMP 983.8
[2020-03-05 03:55] VITALS: BP 106/84; PULSE 83; TEMP 97.7
--- NOTE | 2020-03-05 05:00 | NUR ---
PATIENT HAS HAD A RESTFUL NIGHT SLEEP AND DID NOT REQUIRE ANYTHING FROM THE NURSE AT ALL. WILL REPORT OFF TO THE DAY SHIFT UPON THEIR ARRIVAL
[2020-03-05 06:38] LABS: MEAN CELL VOLUME 84 fl (80.0-100.0); MEAN CORPUSCULAR HGB CONC 33 g/dl (33.0-37.0); MEAN PLATELET VOLUME 9.9 fl (7.4-10.4); PLATELET COUNT 310 K/mm3 (130-400); RED BLOOD COUNT 2.65 M/mm3 (4.20-5.60); REDCELL DISTRIBUTION WIDTH-CV 19.6 % (11.5-14.5)
[2020-03-05 06:42] LABS: HEMATOCRIT 22.2 % (42.0-52.0); HEMOGLOBIN 7.3 g/dl (13.5-18.0); MEAN CORPUSCULAR HEMOGLOBIN 28 pg (27.0-31.0)
[2020-03-05 06:44] LABS: CALCIUM 8.3 mg/dL (8.4-10.2); CREATININE, serum 0.65 (0.66-1.25); POTASSIUM 3.9 mmol/L (3.4-5.0)
[2020-03-05 07:38] LABS: ANISOCYTOSIS 2+; BAND 10 % (0-10); EOSINOPHIL 1 % (0-4); LYMPHOCYTE 6 % (20.0-51.0); METAMYELOCYTE 1 % (0-0); NEUTROPHILS 81 % (42.0-75.2); OVALOCYTES 2+; PLATELET ESTIMATE NORMAL (NORMAL); SCHISTOCYTES 1+
[2020-03-05 08:14] VITALS: BP 124/63; PULSE 93; TEMP 97.8
--- NOTE | 2020-03-05 11:00 | NUR ---
Patient has been doing well this morning. He denies pain or nausea. There was an order for a PICC line to be placed today but [facility] will not be able to do it today. The plan is for the patient to get it on Sunday, even if he discharges. Dr Houston is aware that they could not place the PICC line today. No other changes at this time. Call light within reach.
[2020-03-05 11:57] VITALS: BP 126/60; PULSE 92; TEMP 97.8
--- NOTE | 2020-03-05 12:01 | NUR ---
The patient will need IV antibiotics upon discharge. Awaiting ID's recommendations. SW contacted the patient's , Telma, to update and to discuss where he can receive the IV antibiotics. Telma was agreeable to having the patient receive the IV antibiotics at [facility]. She reports that this will work just fine and that they will have no issues traveling back and forth to the hospital. GRIFFIN to continue to follow.
[2020-03-05 16:17] VITALS: BP 116/58; PULSE 100; TEMP 97.7
--- NOTE | 2020-03-05 19:00 | NUR ---
Patient has been doing well today, denies pain or nausea. He has been up walking in the room independently. He is aware that the plan is to discharge on IV antibiotics and he will come to express unit for them. No other changes at this time. Call light within reach.
[2020-03-05 19:20] VITALS: BP 118/58; PULSE 102; TEMP 98.1
--- NOTE | 2020-03-05 23:30 | NUR ---
PATIENT DOING WELL TONIGHT. STATES HE IS DEPRESSED THAT HE MAY HAVE TO STAY TILL SUNDAY. DENIES PAIN. R CHEST TUBE SITE CDI WITH GAUZE DRESSING. COLON ABCESS DRAIN IS TO DEPENDENT DRAINAGE WITH VERY LITTLE TRAYLOR/RED OUTPUT NOTED. CHRONIC UROSTOMY TO DEPENDENT DRAINAGE. STILL SINUS TACHY, TELE IN PLACE. IV ABX INFUSING WITHOUT ISSUE. TOOK SCHEDULED MEDICATIONS WITHOUT ISSUE. NO FURTHER NEEDS AT THIS TIME. WILL CONTINUE TO MONITOR.
[2020-03-06] VITALS (7 sets, daily range): BP systolic 102–123; BP diastolic 54–69; PULSE 88–105; TEMP 97.5–98.8
--- NOTE | 2020-03-06 03:43 | NUR ---
PATIENTS IV TO L FA WAS LEAKING, DISCONTINUED. RESTARTED TO L FA ON FIRST ATTEMPT BY THIS RN. PATENT AND FLUSHES WITHOUT DIFFICULTY. IV ABX INFUSING WITHOUT ISSUE.
--- NOTE | 2020-03-06 08:00 | NUR ---
Patient in bed resting. Alert and oriented x3, assessment complete. Dressing to previous left chest tube is CDI. Urostomy site to dependent drainage to daniels with clear yellow urine in bag. Wound drainage bag with small amount of dark bloody drinage. Denies pain at this time. Denies further needs at this time.
--- NOTE | 2020-03-06 16:54 | NUR ---
Dr. Houston in to see patient
--- NOTE | 2020-03-06 17:52 | NUR ---
Patient has done well througout the day. Minimal needs. Independent in room. Wound drainage bag with occassional clots noted. Denies further needs at this time. Denies further needs at this time.
--- NOTE | 2020-03-06 23:19 | NUR ---
PATIENT DOING WELL TONIGHT. ALERT AND ORIENTED. DENIES PAIN. TOOK SCHEDULED MEDICATIONS WITHOUT ISSUE. UROSTOMY TO DEPENDENT DRAINAGE WITH CLEAR YELLOW URINE OUTPUT. ABCESS DRAIN TO DEPENDENT DRAINAGE WITH DARK BLOODY OUTPUT. L FA INT INFUSING IV ABX. NO FURTHER NEEDS AT THIS TIME. WILL CONTINUE TO MONITOR.
[2020-03-07 03:29] VITALS: BP 114/65; PULSE 93; TEMP 97.7
--- NOTE | 2020-03-07 06:26 | NUR ---
PATIENTS IV TO L FA WAS LEAKING. RESTARTED 20 G IV ON FIRST ATTEMPT BY THIS NURSE. IV ZOSYN INFUSING WITHOUT ISSUE.
[2020-03-07 08:10] LABS: MEAN CELL VOLUME 85 fl (80.0-100.0); MEAN CORPUSCULAR HGB CONC 32 g/dl (33.0-37.0); MEAN PLATELET VOLUME 9.9 fl (7.4-10.4); PLATELET COUNT 326 K/mm3 (130-400); RED BLOOD COUNT 2.98 M/mm3 (4.20-5.60); REDCELL DISTRIBUTION WIDTH-CV 19.9 % (11.5-14.5)
[2020-03-07 08:17] LABS: HEMATOCRIT 25.2 % (42.0-52.0); HEMOGLOBIN 8.1 g/dl (13.5-18.0); MEAN CORPUSCULAR HEMOGLOBIN 27 pg (27.0-31.0)
[2020-03-07 08:20] LABS: CALCIUM 8.5 mg/dL (8.4-10.2); CREATININE, serum 0.75 (0.66-1.25)
[2020-03-07 08:27] VITALS: BP 116/61; PULSE 102; TEMP 98
[2020-03-07 11:18] LABS: LYMPHOCYTE 7 % (20.0-51.0); METAMYELOCYTE 1 % (0-0); NEUTROPHILS 88 % (42.0-75.2); OVALOCYTES 2+; PLATELET ESTIMATE NORMAL (NORMAL)
[2020-03-07 11:19] LABS: ANISOCYTOSIS 2+; SCHISTOCYTES 1+
[2020-03-07 12:44] VITALS: BP 107/81; PULSE 100; TEMP 97.9
[2020-03-07 16:38] VITALS: BP 122/54; PULSE 114; TEMP 98.3
--- NOTE | 2020-03-07 18:00 | NUR ---
No complaints. Afebrile. Minimal drainage from abscess drain. Ambulatory in room by self. Instructed on antibiotic change.
[2020-03-07 20:14] VITALS: BP 144/76; PULSE 139; TEMP 97.5
--- NOTE | 2020-03-07 20:30 | NUR ---
CONTACTED BY TELE PATIENT IS TACHYCARDIC IN THE 130S BUT HAD GOTTEN HIGH 160. SOB NOTED, NO OTHER SYMPTOMS. NOTIFIED SAMARIA ALFORD, AND STAT EKG ORDERED AND IV METOPROLOL GIVEN. EKG SHOWED SINUS TACHYCARDIA. WILL CONTINUE TO MONITOR.
[2020-03-07 23:07] VITALS: BP 117/76; PULSE 103; TEMP 99.5
--- NOTE | 2020-03-08 00:03 | NUR ---
PATIENT DOING WELL TONIGHT. NO LONGER SINUS TACHY, WITH HR AT 95. DENIES PAIN. ABCESS DRAIN TO DEPENDENT DRAINAGE WITH SMALL AMOUNT OF TRAYLOR BLOODY OUTPUT. UROSTOMY TO DEPENDENT DRAINAGE WITH CLEAR YELLOW OUTPUT. NO FURTHER NEEDS AT THIS TIME. WILL CONTINUE TO MONITOR.
[2020-03-08 03:59] VITALS: BP 123/67; PULSE 93; TEMP 98.7
[2020-03-08 06:26] LABS: MEAN CELL VOLUME 84 fl (80.0-100.0); MEAN CORPUSCULAR HGB CONC 33 g/dl (33.0-37.0); PLATELET COUNT 384 K/mm3 (130-400); RED BLOOD COUNT 2.85 M/mm3 (4.20-5.60); REDCELL DISTRIBUTION WIDTH-CV 19.9 % (11.5-14.5)
[2020-03-08 06:38] LABS: HEMOGLOBIN 7.9 g/dl (13.5-18.0); MEAN CORPUSCULAR HEMOGLOBIN 28 pg (27.0-31.0)
[2020-03-08 07:04] LABS: CALCIUM 8.6 mg/dL (8.4-10.2); CREATININE, serum 0.69 (0.66-1.25); POTASSIUM 3.8 mmol/L (3.4-5.0)
[2020-03-08 07:25] VITALS: BP 125/68; PULSE 93; TEMP 97.5
[2020-03-08 07:36] LABS: BAND 3 % (0-10); LYMPHOCYTE 3 % (20.0-51.0); NEUTROPHILS 87 % (42.0-75.2)
[2020-03-08 07:37] LABS: ANISOCYTOSIS 2+
[2020-03-08 07:38] LABS: MICROCYTOSIS 1+
[2020-03-08 07:39] LABS: POIKILOCYTOSIS 2+
[2020-03-08 07:42] LABS: OVALOCYTES 2+
[2020-03-08 07:53] LABS: PLATELET ESTIMATE NORMAL (NORMAL)
--- NOTE | 2020-03-08 08:00 | NUR ---
Patient in bed resting. Alert and oriented x 3. Assessment complete. Denies pain at this time. Denies further needs.
--- NOTE | 2020-03-08 08:10 | NUR ---
Natalya here to place PICC line
[2020-03-08 11:16] VITALS: BP 115/67; PULSE 87; TEMP 97.8
[2020-03-08] MEDS ORDERED: MAXIPIMEIVSOL IV (11:49)
[2020-03-08] MEDS ORDERED: ZYVOX 600MG600 MG PO (11:52)
[2020-03-08] MEDS ORDERED: FLAGYL500 MG PO (11:52)
--- NOTE | 2020-03-08 14:44 | NUR ---
The patient tentatively discharge home today, 03/08 with assistance. GRIFFIN met with the patient to revisit this plan. He declines HHS. The patient is needing IV antibiotics and those services will be through [facility]. GRIFFIN faxed the required paperwork to the [facility]. GRIFFIN presented the IM form to the patient. The patient understood and signed the form. A copy was provided to the patient and original was placed in the chart. GRIFFIN contacted the patient's to discuss this plan. She was in agreeance. There are no additional needs at this time.
[2020-03-08 15:47] VITALS: BP 121/83; PULSE 116; TEMP 97.6
--- NOTE | 2020-03-08 17:29 | NUR ---
Notified Leanne callahan, patient HR at 115 and maintaining at that rate. Patient also mentioned he had a bit of diarrhea this afternoon. Patient still ok to discharge.
--- NOTE | 2020-03-08 18:45 | NUR ---
Discharge education provied to patient. Antibiotics administered per orders, verified with pharmacy when earliest time for evening dose of antibiotic could be given. Educated patient on all new medications and home PICC line care. Educated patient on antibiotics at express unit. Education provided about wound drainage bag care and recording output. listened in on conversation. All questions answered. Denies further needs at this time. 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
== END 2020-03-08 19:20 | disposition home or self-care (01) | DRG 392 ==
LOC: SURG 14:30 → MEDICAL 16:10 → ICU 19:49 → SURG 02-26 15:08
PROVIDERS: Internal Medicine; Nurse Practitioner Family; Physician Assistant; Surgery; ADMIT Student in an Organized Health Care Education/Training Program
PROC: 0W9B30Z Drainage of Left Pleural Cavity with Drainage Device, Percutaneous Approach (ICD-10-PCS; principal; 2020-02-25 20:30)
PROC: 0W9H30Z Drainage of Retroperitoneum with Drainage Device, Percutaneous Approach (ICD-10-PCS; 2020-03-02)
DX: K57.20 Diverticulitis of large intestine with perforation and abscess without bleeding (principal); D59.1 Other autoimmune hemolytic anemias; K86.2 Cyst of pancreas; J93.83 Other pneumothorax; E44.0 Moderate protein-calorie malnutrition; E87.1 Hypo-osmolality and hyponatremia; Z88.0 Allergy status to penicillin; Z88.8 Allergy status to other drugs, medicaments and biological substances; I48.91 Unspecified atrial fibrillation; Z85.118 Personal history of other malignant neoplasm of bronchus and lung; Z85.51 Personal history of malignant neoplasm of bladder; J44.9 Chronic obstructive pulmonary disease, unspecified; M06.9 Rheumatoid arthritis, unspecified; E78.5 Hyperlipidemia, unspecified; R59.0 Localized enlarged lymph nodes; K80.20 Calculus of gallbladder without cholecystitis without obstruction; Z68.20 Body mass index [BMI] 20.0-20.9, adult; Z66 Do not resuscitate; R73.9 Hyperglycemia, unspecified; R00.0 Tachycardia, unspecified
CPT/HCPCS: 99223-AI; 99231-AI; 99232-AI; 99233-AI; 99239; A7041; C1729; C1751; J0692; J0696; J1650; J2543; J7030; J7512; Q9967

== ENCOUNTER → 2020-03-16 | Outpatient (CLI) | payer MEDICARE, BC ==
[~2020-03-16] MED LIST changes: +COLACE 100100 MG/CAP PO; +MASON NATURAL2000 IU PO; +MAXIPIMEIVSOL IV; +NATURAL IRON65 MG PO; +PROBIOTIC ACID1 EAC3 PO; +VITAMIN B12 781 TAB PO; +VITAMINC1000TA PO; +ZYVOX 600MG600 MG PO
== END ==
LOC: COL.RAD 14:00
DX: J93.9 Pneumothorax, unspecified (principal); K52.9 Noninfective gastroenteritis and colitis, unspecified; N26.1 Atrophy of kidney (terminal); K80.20 Calculus of gallbladder without cholecystitis without obstruction; N28.9 Disorder of kidney and ureter, unspecified; Z90.6 Acquired absence of other parts of urinary tract; Z90.79 Acquired absence of other genital organ(s); Z95.9 Presence of cardiac and vascular implant and graft, unspecified
CPT/HCPCS: Q9967

== ENCOUNTER → 2020-03-18 | Outpatient (CLI) | payer MEDICARE, BC ==
[~2020-03-18] MED LIST changes: +CUBICIN 500MG500 MG IV; +ZOFRAN ODT4 MG PO
== END ==
LOC: ZCOL.LAB 17:56
DX: J43.9 Emphysema, unspecified (principal); L02.91 Cutaneous abscess, unspecified; K57.30 Diverticulosis of large intestine without perforation or abscess without bleeding

== ENCOUNTER 2020-03-20 17:28 | Outpatient (RCR) | payer MEDICARE, BC ==
[2020-03-09 07:50] VITALS: BP 111/75; PULSE 118; TEMP 97.9
[2020-03-09 18:01] VITALS: BP 130/74; PULSE 117; TEMP 98
[2020-03-10 07:10] VITALS: BP 117/69; PULSE 104; TEMP 97.5
[2020-03-10 17:34] VITALS: BP 118/74; PULSE 103; TEMP 98.4
[2020-03-11 07:12] VITALS: BP 99/61; PULSE 103; TEMP 97.5
[2020-03-11 18:11] VITALS: BP 116/63; PULSE 100; TEMP 97.9
[2020-03-12 07:11] VITALS: BP 104/69; PULSE 93; TEMP 98.1
[2020-03-12 17:32] VITALS: BP 109/63; PULSE 91; TEMP 98.1
[2020-03-13 07:39] VITALS: BP 101/55; PULSE 97; TEMP 97.6
[2020-03-13 17:34] VITALS: BP 108/59; PULSE 92; TEMP 97.9
[2020-03-14 07:32] VITALS: BP 113/59; PULSE 103; TEMP 97.4
[2020-03-14 17:35] VITALS: BP 111/51; PULSE 98; TEMP 97.9
[2020-03-15 07:45] VITALS: BP 99/61; PULSE 93; TEMP 98
[2020-03-15 07:54] LABS: MEAN CELL VOLUME 84 fl (80.0-100.0); MEAN CORPUSCULAR HGB CONC 33 g/dl (33.0-37.0); MEAN PLATELET VOLUME 10.2 fl (7.4-10.4); PLATELET COUNT 308 K/mm3 (130-400); RED BLOOD COUNT 2.54 M/mm3 (4.20-5.60); REDCELL DISTRIBUTION WIDTH-CV 19.6 % (11.5-14.5)
--- NOTE | 2020-03-15 08:00 | NUR ---
PICC intact right upper arm with sterile dressing change done with insertion site cleansed with chloraprep x 1, chlorhexidine impregnated disk applied, skin prep, stat lock, and tegaderm applied. no signs or symptoms of IV complications noted. no concerns voiced. re-wrapped with jesi to protect catheter.
[2020-03-15 08:07] LABS: HEMATOCRIT 21.4 % (42.0-52.0); MEAN CORPUSCULAR HEMOGLOBIN 28 pg (27.0-31.0)
[2020-03-15 08:09] LABS: ALBUMIN 3.2 gm/dL (3.5-5.0); BILIRUBIN,TOTAL 0.6 mg/dL (0.0-1.0); CALCIUM 8.8 mg/dL (8.4-10.2); CREATININE, serum 0.98 (0.66-1.25); POTASSIUM 4.1 mmol/L (3.4-5.0); TOTAL PROTEIN 6.7 gm/dL (6.4-8.2)
[2020-03-15 17:39] VITALS: BP 111/56; PULSE 108; TEMP 98
[2020-03-16 08:02] VITALS: BP 114/56; PULSE 81; TEMP 98.5
[2020-03-16 17:31] VITALS: BP 112/57; PULSE 82; TEMP 97.6
[2020-03-17 07:10] VITALS: BP 114/56; PULSE 77; TEMP 98.3
[2020-03-17 17:38] VITALS: BP 107/62; PULSE 70; TEMP 98.8
[2020-03-18 07:30] VITALS: BP 144/66; PULSE 96; TEMP 98.4
[2020-03-18 18:10] VITALS: BP 111/64; PULSE 104; TEMP 97.5
[2020-03-19 07:45] VITALS: BP 100/64; PULSE 98; TEMP 97.9
[2020-03-19 18:00] VITALS: BP 106/63; PULSE 107; TEMP 98
[~2020-03-20] VITALS: Ht 182.9 cm; Wt 64.8 kg
[2020-03-20 07:45] VITALS: BP 115/68; PULSE 104; TEMP 97.7
[2020-03-20 10:24] LABS: CLOSTRIDIUM DIFF A/B NEG; CLOSTRIDIUM DIFF A/B INTERP No C.diff present
[~2020-03-20 17:28] MED LIST changes: -ZOFRAN ODT4 MG PO
[2020-03-21 07:45] VITALS: BP 101/63; PULSE 93; TEMP 98.6
[2020-03-22 07:45] VITALS: BP 90/55; PULSE 92; TEMP 98.4
[2020-03-22] MEDS ORDERED: ZOFRAN ODT4 MG PO (09:52)
--- NOTE | 2020-03-23 07:24 | NUR ---
Per ER notes,pt was transferred to [facility].
== END 2020-03-23 07:25 | disposition still patient (30) ==
LOC: COL.ER 03-21 17:14
PROVIDERS: Student in an Organized Health Care Education/Training Program; Surgery
DX: J93.9 Pneumothorax, unspecified (principal); R85.69 Abnormal cytological findings in specimens from other digestive organs and abdominal cavity; Z95.9 Presence of cardiac and vascular implant and graft, unspecified; K57.20 Diverticulitis of large intestine with perforation and abscess without bleeding; J43.9 Emphysema, unspecified
CPT/HCPCS: J0690; J0692; J0878; J1100; J2250; J2405; J2704; J3010; J7030

== ENCOUNTER 2020-03-22 15:11 | Emergency (ER) | payer MEDICARE, BC ==
[~2020-03-22] VITALS: Ht 182.9 cm; Wt 62.7 kg
[~2020-03-22 15:11] MED LIST changes: +ZOFRAN ODT4 MG PO
[2020-03-22 15:20] VITALS: TEMP 98.3
[2020-03-22 16:07] LABS: BILIRUBIN,TOTAL 0.6 mg/dL (0.0-1.0); CALCIUM 9.2 mg/dL (8.4-10.2); CREATININE, serum 1.08 (0.66-1.25); POTASSIUM 4.1 mmol/L (3.4-5.0); TOTAL PROTEIN 6.3 gm/dL (6.4-8.2)
[2020-03-22 16:13] LABS: MEAN CELL VOLUME 87 fl (80.0-100.0); MEAN CORPUSCULAR HGB CONC 31 g/dl (33.0-37.0); PLATELET COUNT 65 K/mm3 (130-400); RED BLOOD COUNT 1.78 M/mm3 (4.20-5.60); REDCELL DISTRIBUTION WIDTH-CV 18.7 % (11.5-14.5)
[2020-03-22 16:25] LABS: HEMATOCRIT 15.4 % (42.0-52.0); HEMOGLOBIN 4.8 g/dl (13.5-18.0); MEAN CORPUSCULAR HEMOGLOBIN 27 pg (27.0-31.0)
[2020-03-22 16:35] LABS: ARTERIAL BLD GAS O2 SATURATION 95.4 % (92-100); ARTERIAL BLD GAS TCO2 CT 18.5; ARTERIAL BLOOD GAS BASE EXCESS -6.3 (-2-2); ARTERIAL BLOOD GAS HCO3 17.6 meq/L (22-26); ARTERIAL BLOOD GAS PCO2 28.2 mmHg (35-45); ARTERIAL BLOOD GAS PO2 81.3 mmHg (80-100); ARTERIAL BLOOD GAS pH 7.41 (7.35-7.45)
[2020-03-22 17:12] LABS: BAND 3 % (0-10); LYMPHOCYTE 4 % (20.0-51.0); NEUTROPHILS 93 % (42.0-75.2)
[2020-03-22 17:19] LABS: ANISOCYTOSIS 2+; HYPOCHROMIA 2+; PLATELET ESTIMATE DECREASED (NORMAL)
[2020-03-22 17:21] LABS: OVALOCYTES 3+; TEAR DROP CELLS 1+
[2020-03-22 18:10] LABS: COLLECTION METHOD CLEAN CATCH
[2020-03-22 18:23] LABS: BUDDING YEAST Present /hpf; MUCOUS Present /lpf; PH 7 (5-8); SQUAMOUS EPITHELIAL None Seen /hpf; URINE APPEARANCE Hazy; URINE BACTERIA Occasional /hpf; URINE BILIRUBIN Negative (NEGATIVE); URINE BLOOD 1+ (NEGATIVE); URINE CALCIUM OXALATE CRYSTAL Present /hpf; URINE COLOR Yellow; URINE GLUCOSE Negative (NEGATIVE); URINE KETONE Negative (NEGATIVE); URINE LEUKOCYTE ESTERASE 2+ (NEGATIVE); URINE NITRATE Negative (NEGATIVE); URINE PROTEIN(semi-quant) 1+ (NEGATIVE); URINE UROBILINOGEN Negative (NEGATIVE)
[2020-03-22 18:40] VITALS: BP 117/78; PULSE 115
--- NOTE | 2020-03-23 07:23 | NUR ---
Per ER notes,pt was transferred to [facility].
[2020-03-23 08:50] LABS: PATHOLOGY DIFF REVIEW OK
== END 2020-03-22 18:43 | disposition short-term general hospital (02) ==
LOC: COL.ER 15:11
PROVIDERS: Family Medicine
DX: D64.9 Anemia, unspecified (principal); Z79.52 Long term (current) use of systemic steroids; Z79.01 Long term (current) use of anticoagulants; I48.91 Unspecified atrial fibrillation; Z85.118 Personal history of other malignant neoplasm of bronchus and lung
CPT/HCPCS: J7120

== ENCOUNTER → 2020-04-07 | Outpatient (CLI) | payer MEDICARE, BC | LOC: COL.RAD 11:18 | DX: K57.20 Diverticulitis of large intestine with perforation and abscess without bleeding (principal); K80.80 Other cholelithiasis without obstruction; N26.1 Atrophy of kidney (terminal); N20.0 Calculus of kidney; Z90.6 Acquired absence of other parts of urinary tract ==

== ENCOUNTER 2020-04-09 13:52 | Emergency (ER) | payer MEDICARE, BC ==
[~2020-04-09] VITALS: Ht 182.9 cm; Wt 60.5 kg
--- NOTE | 2020-04-09 14:10 | NUR ---
Patient presented to the emergency department today. PICC present right upper arm. No chlorhexidine impregnated disc present. With sterile technique right upper arm PICC dressing change done with insertion site cleansed with ChloraPrep 1, chlorhexidine impregnated disc applied, skin prep, StatLock, and Tegaderm applied. No signs or symptoms of IV complications noted. No concerns voiced.
[2020-04-09 14:14] VITALS: TEMP 98
[2020-04-09 15:00] LABS: MEAN CELL VOLUME 90 fl (80.0-100.0); MEAN CORPUSCULAR HGB CONC 31 g/dl (33.0-37.0); PLATELET COUNT 261 K/mm3 (130-400); RED BLOOD COUNT 2.02 M/mm3 (4.20-5.60); REDCELL DISTRIBUTION WIDTH-CV 19.6 % (11.5-14.5)
[2020-04-09 15:07] LABS: HEMATOCRIT 18.2 % (42.0-52.0); HEMOGLOBIN 5.6 g/dl (13.5-18.0); MEAN CORPUSCULAR HEMOGLOBIN 28 pg (27.0-31.0)
[2020-04-09 15:22] LABS: INR 1.2 (0.8-3.0); PROTHROMBIN TIME 13.9 SECONDS (9.7-12.8)
[2020-04-09 15:45] LABS: ALBUMIN 2.9 gm/dL (3.5-5.0); BILIRUBIN,TOTAL 1.2 mg/dL (0.0-1.0); CALCIUM 8.5 mg/dL (8.4-10.2); CREATININE, serum 1.46 (0.66-1.25); POTASSIUM 4.4 mmol/L (3.4-5.0); TOTAL PROTEIN 6.6 gm/dL (6.4-8.2)
[2020-04-09 15:56] LABS: C-REACTIVE PROTEIN 15.4 mg/dL (0.0-0.9)
[2020-04-09 16:05] LABS: BAND 14 % (0-10); LYMPHOCYTE 9 % (20.0-51.0); NEUTROPHILS 75 % (42.0-75.2); PLATELET ESTIMATE NORMAL (NORMAL)
[2020-04-09 16:06] LABS: ANISOCYTOSIS 2+; HYPOCHROMIA 2+; POIKILOCYTOSIS 1+
[2020-04-09 16:07] LABS: OVALOCYTES 1+; TEAR DROP CELLS 1+
[2020-04-09 17:18] VITALS: BP 101/57; PULSE 81
== END 2020-04-09 17:20 | disposition short-term general hospital (02) ==
LOC: COL.ER 13:52
PROVIDERS: Emergency Medicine
DX: K57.20 Diverticulitis of large intestine with perforation and abscess without bleeding (principal); D58.9 Hereditary hemolytic anemia, unspecified; I48.91 Unspecified atrial fibrillation; Z79.01 Long term (current) use of anticoagulants; Z79.52 Long term (current) use of systemic steroids; Z85.51 Personal history of malignant neoplasm of bladder; Z85.118 Personal history of other malignant neoplasm of bronchus and lung
CPT/HCPCS: J0692; J1720; J7030